=== PATIENT | male | born 1955 | race Two or more races ===

== ENCOUNTER 2019-09-21 17:58 | Inpatient (IN) | payer BC ==
[~2019-09-21] VITALS: Ht 162.6 cm; Wt 35.4 kg
[~2019-09-21 17:58] MED LIST: CALCTAB25 PO; LISI30TA4; TRAZ100T3
[2019-09-21 18:37] LABS: Basophils # (auto) 0.1 10 ^3/uL (0-0.2); Basophils % (auto) 0.7 % (0.0-2.0); Eosinophils # (auto) 0.1 10 ^3/uL (0-0.8); Lymphocytes # (auto) 1.7 10 ^3/uL (0.4-5.4); Nucleated Red Blood Cells % 0.1 %
[2019-09-21 18:39] LABS: Eosinophils % (auto) 0.9 % (0.0-7.0); Hematocrit 44.5 % (41.0-53.0); Lymphocytes % (auto) 16.1 % (10.0-50.0); Mean Corpuscular Hgb Conc. 35.9 g/dL (32.0-36.0); Mean Corpuscular Volume 103.1 fL (80.0-100.0); Monocytes # (auto) 1.2 10 ^3/uL (0-1.3); Monocytes % (auto) 11.3 % (0.0-12.0); Neutrophils # (auto) 7.3 10 ^3/uL (1.6-8.6); Platelet Count (auto) 155 10^3/uL (140-450); Red Blood Cells 4.32 10^6/uL (4.5-5.90); Red Cell Distribution Width 16.5 % (11.8-14.3); White Blood Cell 10.3 10^3/uL (4.4-10.8)
[2019-09-21 18:58] LABS: BUN/Creatinine Ratio 12.9; Calcium 8.7 mg/dL (8.5-10.1); Potassium 4.1 mmol/L (3.5-5.1)
[2019-09-21 19:01] LABS: Total Protein 8.4 g/dL (6.4-8.2)
[2019-09-21 19:04] LABS: Urine Bacteria NONE SEEN /hpf (None Seen); Urine Blood 2+ /uL (Negative); Urine Mucus FEW (None Seen); Urine Specific Gravity 1.013 (1.001-1.035); Urine WBC 24 /hpf (0 - 3)
[2019-09-21] MEDS ORDERED: KETOROLAC TROMETH 60MG/2ML VIAL IM ONE (21:45)
[2019-09-21] MEDS ORDERED: KETOROLAC TROMETH 30 MG/ML 1ML VIAL IV ONE (22:15)
[2019-09-21] MEDS ORDERED: SODIUM CHLORIDE 0.9% 1,000 ML IV ONE (22:15)
[2019-09-21] MEDS ORDERED: TAMSULOSIN HYDROCHLORIDE 0.4 MG CAP PO ONE (22:15)
[2019-09-22] MEDS ORDERED: SODIUM CHLORIDE 0.9% 1,000 ML IV SCH (04:21)
[2019-09-22] MEDS ORDERED: MORPHINE SULF INJ 2 MG/ML SYRINGE 1ML IV PRN ×2 (04:30→17:15)
[2019-09-22] MEDS ORDERED: SODIUM CHLORIDE 0.9% 1,000 ML IV ONE (04:30)
[2019-09-22] MEDS ORDERED: ONDANSETRON HCL 4 MG/2 ML VIAL IV PRN (04:30)
[2019-09-22] MEDS ORDERED: DOCUSATE SOD 100 MG CAP PO PRN (04:30)
[2019-09-22] MEDS ORDERED: ACETAMINOPHEN 325 MG TAB PO PRN (04:30)
[2019-09-22] MEDS ORDERED: HYDROcodone-ACET 5/325MG TAB PO PRN (04:30)
[2019-09-22 06:41] LABS: Basophils # (auto) 0 10 ^3/uL (0-0.2); Basophils % (auto) 0.3 % (0.0-2.0); Eosinophils # (auto) 0 10 ^3/uL (0-0.8); Eosinophils % (auto) 0.2 % (0.0-7.0); Hematocrit 42.4 % (41.0-53.0); Hemoglobin 14.8 g/dL (13.5-17.5); Lymphocytes % (auto) 21.5 % (10.0-50.0); Mean Corpuscular Hemoglobin 36.3 pg (28.0-32.0); Mean Corpuscular Volume 103.8 fL (80.0-100.0); Monocytes % (auto) 10.6 % (0.0-12.0); Neutrophils # (auto) 6.3 10 ^3/uL (1.6-8.6); Neutrophils % (auto) 67.4 % (37.0-80.0); Nucleated Red Blood Cells % 0.1 %; Platelet Count (auto) 119 10^3/uL (140-450); Red Blood Cells 4.08 10^6/uL (4.5-5.90); Red Cell Distribution Width 16.4 % (11.8-14.3); White Blood Cell 9.4 10^3/uL (4.4-10.8)
[2019-09-22 06:54] LABS: Potassium 4.2 mmol/L (3.5-5.1)
[2019-09-22 06:57] LABS: BUN/Creatinine Ratio 15.7
[2019-09-22] MEDS: TAMSULOSIN HYDROCHLORIDE 0.4 MG CAP PO SCH (09:10)
[2019-09-22] MEDS: cefTRIAXone 1GM/50ML D5W 50 ML IV SCH (09:10)
[2019-09-22] MEDS ORDERED: KETAMINE HCL 10 ML ONE (14:31)
[2019-09-22] MEDS ORDERED: SODIUM CHLORIDE LOCK 10 ML ONE (14:31)
[2019-09-22] MEDS ORDERED: MIDAZOLAM HCL 1MG/1ML-2 ML VIAL ONE (14:31)
[2019-09-22] MEDS ORDERED: fentaNYL CITRATE 100 MCG/2 ML VL ONE (14:31)
[2019-09-22] MEDS ORDERED: PROPOFOL 10 MG/ML 20 ML IV ONE ×2 (14:31→16:33)
[2019-09-22] MEDS ORDERED: ONDANSETRON HCL 4 MG/2 ML VIAL ONE (14:31)
[2019-09-22 14:44] LABS: INR 1.08 (0.9-1.15)
[2019-09-22] MEDS ORDERED: IOHEXOL 300 MG/ML 100ML BOTTLE IJ ONE (15:15)
[2019-09-22] MEDS ORDERED: MANNITOL FTV 25% 12.5 GM/50 ML 50 ML IV ONE ×2 (15:30→17:30)
[2019-09-22] MEDS ORDERED: METOCLOPRAMIDE HCL 5MG/ml INJ 2ml VIAL IV PRN (17:15)
[2019-09-22] MEDS ORDERED: HYDROmorphone HCL 2 MG/ML VL IV PRN (17:15)
--- NOTE | 2019-09-22 18:07 | NUR ---
PATIENT ARRIVED FROM OR REPORT GIVEN BY KALA FONSECA FROM PACU. PATIENT HAD BILATERAL ESWL BY DR. LOPEZ (UROLOGY). PATIENT IS AWAKE AND ALERT APPROPRIATE FOR PACU. WELSH SPEAKING MALE, WITH SOME CYMRAES. NKDA, 0 PAIN. VS 73HR, 18 RR, 150/91, 97% 2L NC, TEMP 97.4. 20G/R HAND PLACED 09/22/19. DAUGHTER KOBE, HAS BEEN UPDATED NO PASSWORD. SCD'S PLACED. DIET REGULAR, ; ALL URINE TO BE STRAINED. HX; ETOH, CURRENT SMOKER, TX FOR DT, HTN, ANX/DEPRESS, CP, RESP DISORDER NON-SPECIFIC, COLD/NUMBNESS EXT.
[2019-09-22] MEDS ORDERED: hydrALAZINE HCL 20 MG/ML VL IV PRN (19:00)
--- NOTE | 2019-09-22 19:40 | NUR ---
Opening Shift Note Assumed care of patient, awake and alert, bolivian speaking. No S/S of distress/SOB or pain. Noted hematuria in the urinal. Instructed to strain all urine. Instructed on POC and to call for assist PRN, patient verbalized understanding. Safety precaution in place, call light within reach, will continue to monitor for changes Q1hr and PRN.
[2019-09-22] MEDS: ATORVASTATIN 20 MG TAB PO SCH (19:56)
[2019-09-22] MEDS: amLODIPine BESYLATE 5 MG TAB PO SCH (19:57)
[2019-09-22 20:00] VITALS: BP 150/73
[2019-09-22 23:09] VITALS: BP 148/85
[2019-09-23 01:44] VITALS: BP 150/91
[2019-09-23 06:01] VITALS: BP 133/91
[2019-09-23 06:50] LABS: Basophils # (auto) 0.1 10 ^3/uL (0-0.2); Basophils % (auto) 0.9 % (0.0-2.0); Eosinophils # (auto) 0.1 10 ^3/uL (0-0.8); Eosinophils % (auto) 1.7 % (0.0-7.0); Hematocrit 42.1 % (41.0-53.0); Hemoglobin 14.6 g/dL (13.5-17.5); Lymphocytes # (auto) 1.4 10 ^3/uL (0.4-5.4); Lymphocytes % (auto) 19.2 % (10.0-50.0); Mean Corpuscular Hemoglobin 35.8 pg (28.0-32.0); Mean Corpuscular Hgb Conc. 34.6 g/dL (32.0-36.0); Mean Corpuscular Volume 103.5 fL (80.0-100.0); Monocytes # (auto) 0.7 10 ^3/uL (0-1.3); Monocytes % (auto) 9.4 % (0.0-12.0); Neutrophils # (auto) 5.1 10 ^3/uL (1.6-8.6); Neutrophils % (auto) 68.8 % (37.0-80.0); Platelet Count (auto) 103 10^3/uL (140-450); Red Blood Cells 4.07 10^6/uL (4.5-5.90); Red Cell Distribution Width 16.1 % (11.8-14.3); White Blood Cell 7.4 10^3/uL (4.4-10.8)
[2019-09-23 07:05] LABS: BUN/Creatinine Ratio 17.8; Calcium 7.9 mg/dL (8.5-10.1)
[2019-09-23 09:00] VITALS: BP 129/86
[2019-09-23] MEDS: TAMSULOSIN HYDROCHLORIDE 0.4 MG CAP PO SCH (10:15)
[2019-09-23] MEDS: amLODIPine BESYLATE 5 MG TAB PO SCH (10:15)
[2019-09-23] MEDS: cefTRIAXone 1GM/50ML D5W 50 ML IV SCH (10:15)
[2019-09-23 13:00] VITALS: BP 154/98
[2019-09-23] MEDS ORDERED: LEVO500T21 PO (16:04)
[2019-09-23] MEDS ORDERED: AML5T PO (16:04)
[2019-09-23 17:00] VITALS: BP 138/86
--- NOTE | 2019-09-23 17:10 | NUR ---
Assessment Patient is a 63-year-old male who is alert and oriented. Prior to admission patient lived alone and functioned independently. Patient can care for his own ADLs. Patient informed me he does not have any medical equipment now. Per patient he will return to his prior living arrangements post discharge and family will transport patient home. Advised patient there is a Social Service consult for home health safety evaluation. Per Patient he does not need any additional service stating his daughter lives next door and helps him when is needed. Patient informed me he has good family support. Informed patient he has the right to participate in all discharge planning. Patient verbalized understanding and agreed to discharge plan home. Addendum: 09/23/19 at 1711 by LUIS CONNOR Amended: Links added.
[2019-09-23] MEDS: ATORVASTATIN 20 MG TAB PO SCH (17:53)
--- NOTE | 2019-09-23 18:32 | NUR ---
Discharge Went over discharge paperwork and answered all questions. New prescriptions were sent to patient's pharmacy through [facility] by . Removed IV intact, no problems. Removed ID band. Provided patient with urinal, specimen cup, and strainer for patient to continue straining for kidney stones prior to PCP follow up visit on September 25. Family to pickle pumper patient in private vehicle. Patient has all personal belongings in hospital patient bag.
--- NOTE | 2019-09-23 19:39 | NUR ---
Patient A&O x 4 ambulatory but requested w/c to go to front entrance of hospital where daughter waiting with private car to take him home. ID bracelet prev. removed by day shift staff. Pt has take home information in hand and knows to brick picker Rx'd meds at [facility]. Color good/ pink. No s/sx SOB, pain or other distress. Discharged home.
== END 2019-09-23 19:39 | disposition home or self-care (01) | DRG 690 ==
LOC: ER 17:58 → OVERFLOW 17:59 → WEST WING 09-22 18:07
PROVIDERS: ADMIT Hospitalist; ATTEND Hospitalist
PROC: 0TF6XZZ Fragmentation in Right Ureter, External Approach (ICD-10-PCS; 2019-09-22)
PROC: 0TF4XZZ Fragmentation in Left Kidney Pelvis, External Approach (ICD-10-PCS; principal; 2019-09-22 15:20)
DX: N13.6 Pyonephrosis (principal); I10 Essential (primary) hypertension; K57.30 Diverticulosis of large intestine without perforation or abscess without bleeding; K76.0 Fatty (change of) liver, not elsewhere classified; N17.9 Acute kidney failure, unspecified; Z82.3 Family history of stroke; Z82.49 Family history of ischemic heart disease and other diseases of the circulatory system; Z87.442 Personal history of urinary calculi; K70.30 Alcoholic cirrhosis of liver without ascites; E78.5 Hyperlipidemia, unspecified
CPT/HCPCS: 36415; 71045; 74176; 80048; 80053; 80061; 81001; 83690; 85025; 85610; 85730; 93005; 96361; 96374; G0378; J0696; J1885; J2250; J2405; J2704